=== PATIENT | male | born 1990 | race Hispanic/Latino ===

== ENCOUNTER 2018-11-30 17:10 | Emergency (ER) | payer SELFPAY ==
--- NOTE | 2018-11-30 18:58 | RAD ---
CHEST TWO VIEWS: 11/30/18 HISTORY: Injury, hit in head with a cactus. FINDINGS: Heart size is normal. The lungs are clear. IMPRESSION: No acute intrathoracic disease. POS: RRE
--- NOTE | 2018-11-30 19:15 | CT ---
CT brain noncontrast: HISTORY: 28-year-old male with severe posttraumatic headache FINDINGS: There is no evidence of acute intra-axial or extra-axial hemorrhage. There is no midline shift or any other mass effect. There is no extra-axial fluid collection. The ventricles are normal in size and configuration. The tympanomastoid cavities, and the upper portions of the paranasal sinuses included in these images, are grossly clear. Calvarium is intact. IMPRESSION: Normal.
[2018-11-30 19:21] LABS: #Lymphocytes 1.1 thou/uL (1.20-3.40); #Monocytes 0.9 thou/uL (0.11-0.59); #Neutrophils 4.5 thou/uL (1.40-6.50); %Basophils 0.2 % (0.0-1.0); %Eosinophils 0.5 % (0.0-10.0); %Neutrophils 69.3 % (42.0-75.0); Hemoglobin 17.6 g/dL (14.0-18.0); Mean Corpuscular HGB CONC 33.5 g/dL (32.0-36.0); Mean Corpuscular Hemoglobin 29.5 pg (27.0-31.0); Mean Platelet Volume 7.8 fL (7.4-10.4); Platelet Count 207 thou/uL (130-400); RBC Distribution Width 13.2 % (11.5-14.5); Red Blood Cell (RBC) Count 5.97 mill/uL (4.70-6.10); White Blood Cell (WBC) Count 6.6 thou/uL (4.8-10.8)
[2018-11-30 19:44] LABS: ALT (SGPT) 13 U/L (8-55); AST (SGOT) 17 U/L (5-34); Albumin 4.8 g/dL (3.5-5.0); Alkaline Phosphatase 77 U/L (40-150); Anion Gap 13 mmol/L (10-20); BUN (Urea Nitrogen) 16 mg/dL (8.9-20.6); Bilirubin, Total 1.1 mg/dL (0.2-1.2); CK (CPK) 67 U/L (30-200); Calc. Creatinine Clearance 0 mL/min (70-130); Calcium 9.9 mg/dL (7.8-10.44); Carbon Dioxide 28 mmol/L (22-29); Chloride 100 mmol/L (98-107); Estimated GFR-MDRD 37; Globulin 3.2 g/dL (2.4-3.5); Glucose 110 mg/dL (70-105); Potassium 4.1 mmol/L (3.5-5.1); Sodium 137 mmol/L (136-145)
[2018-11-30] MEDS ORDERED: Ondansetron PF 4 MG/2 ML Vial ONE (19:47)
[2018-11-30] MEDS ORDERED: Morphine 4 MG/ML VIAL ONE (19:47)
[2018-11-30] MEDS ORDERED: Labetalol HCl 100 MG/20 ML VIAL ONE ×2 (20:04→20:06)
[2018-11-30 20:26] LABS: Bilirubin Negative (Negative); Blood, Urine Moderate (Negative); Clarity CLEAR (Clear); Glucose, Urine (Dipstick) Negative (Negative); Leukocyte Negative (Negative); Nitrite Negative (Negative); Protein, Urine (Dipstick) 300 mg/dL (Neg-Trace); Specific Gravity, Urine 1.014 (1.002-1.036)
[2018-11-30 20:28] LABS: Bacteria/HPF None Seen HPF (None Seen); Hyaline Casts/LPF 0-3 HYALINE CAST LPF (0-3 Hyaline); Squamous Epithelial None Seen HPF (0-3); WBC/HPF None Seen HPF (0-3)
[2018-11-30] MEDS ORDERED: Cephalexin 250 MG CAP ONE (20:59)
[2018-11-30] MEDS ORDERED: Acyclovir 400 mg Tablet PO SCH (21:00)
[2018-12-04 07:23] LABS: Tacrolimus None Detected ng/mL (2.0-20.0)
--- NOTE | 2018-12-04 23:33 | EKG ---
Test Reason : Blood Pressure : / mmHG Vent. Rate : 089 BPM Atrial Rate : 089 BPM P-R Int : 150 ms QRS Dur : 096 ms QT Int : 364 ms P-R-T Axes : 027 -10 065 degrees QTc Int : 442 ms Normal sinus rhythm Possible Left atrial enlargement Left ventricular hypertrophy Abnormal ECG Confirmed by BARBARA PLEITEZ ([id number]), editor producer ERIKA PRATHER ([id number]) on 12/04/2018 11:33:13 PM Referred By: Confirmed By:BARBARA PLEITEZ
== END 2018-11-30 22:18 | disposition home or self-care (01) ==
LOC: ERS 17:10
DX: L03.811 Cellulitis of head [any part, except face] (principal); N19 Unspecified kidney failure; B02.9 Zoster without complications; F17.210 Nicotine dependence, cigarettes, uncomplicated; I10 Essential (primary) hypertension; M06.9 Rheumatoid arthritis, unspecified; Z79.899 Other long term (current) drug therapy
CPT/HCPCS: 36415; 70450; 71046; 80053; 80197; 81003; 81015; 82550; 84484; 85025; 93005; 94760; 96374; 96375; J2270; J2405